=== PATIENT | female | born 1990 | race African-American/Black ===

== ENCOUNTER 2019-06-01 19:13 | Observation (INO) | payer MEDICAID ==
[~2019-06-01] VITALS: Ht 165.1 cm; Wt 79.4 kg
[2019-06-01] MEDS ORDERED: ASCO500C18 PO (19:51)
[2019-06-01] MEDS ORDERED: FERR-71 PO (19:51)
== END 2019-06-01 22:45 | disposition home or self-care (01) ==
LOC: 8 EST LDRP 19:13
PROVIDERS: ADMIT Obstetrics & Gynecology; ATTEND Obstetrics & Gynecology
DX: O42.92 Full-term premature rupture of membranes, unspecified as to length of time between rupture and onset of labor (principal); O62.9 Abnormality of forces of labor, unspecified; Z3A.38 38 weeks gestation of pregnancy
CPT/HCPCS: 99281; G0378

== ENCOUNTER 2019-06-06 18:12 | Inpatient (IN) | payer MEDICAID ==
[~2019-06-06] VITALS: Ht 165.1 cm; Wt 82.1 kg
[~2019-06-06 18:12] MED LIST: ASCO500C18 PO; FERR-71 PO
[2019-06-06] MEDS ORDERED: LACTATED RINGERS 1,000 ML IV SCH ×2 (19:30→21:01)
[2019-06-06] MEDS ORDERED: LACTATED RINGERS 1,000 ML IV ONE (19:30)
[2019-06-06 19:52] LABS: CLARITY URINE TURBID (CLEAR); COLOR URINE DARK YELLOW (YELLOW); KETONES URINE NEGATIVE (NEGATIVE); LEUKOCYTE ESTERASE URINE 1+ (NEGATIVE); NITRITE URINE NEGATIVE (NEGATIVE); OCCULT BLOOD URINE 3+ (NEGATIVE); PROTEIN URINE 1+ (NEGATIVE); SPECIFIC GRAVITY URINE 1.029 (1.005-1.030)
[2019-06-06] MEDS ORDERED: DEXT 5%/LR + PITOCIN 20UNITS/L 1,000 ML IV SCH (21:01)
[2019-06-06] MEDS ORDERED: METHYLERGONOVINE MALEATE 0.2 MG/ML IM PRN (21:15)
[2019-06-06] MEDS ORDERED: ROPIVACAINE HCL/PF EPIDURAL 200 ML EPI SCH (21:15)
[2019-06-06] MEDS ORDERED: NALOXONE HCL 0.4 MG/ML 1ML VIAL IM PRN (21:15)
[2019-06-06] MEDS ORDERED: RHO(D) IMMUNE GLOBULIN 300 MCG/SYR IM SCH (21:15)
[2019-06-06] MEDS ORDERED: MINERAL OIL 30ML BOTTLE PO SCH (21:15)
[2019-06-06] MEDS ORDERED: LIDOCAINE HCL 1% 20ML VIAL (Pyxis) INJ INFIL SCH (21:15)
[2019-06-06] MEDS ORDERED: PENICILLIN G POTASSIUM 5 MMU in DEXT 5% WATER 100 ML IV SCH (22:00)
[2019-06-06 22:05] LABS: *AMPHETAMINES SCREEN URINE NEGATIVE (NEGATIVE); *BARBITURATES SCREEN URINE NEGATIVE (NEGATIVE); *BENZODIAZEPINES SCREEN URINE NEGATIVE (NEGATIVE); *COCAINE SCREEN URINE NEGATIVE (NEGATIVE); CANNABINOID URINE SCREEN NEGATIVE (NEGATIVE); METHADONE URINE SCREEN NEGATIVE (NEGATIVE); OPIATES URINE SCREEN NEGATIVE (NEGATIVE); PHENCYCLIDINE URINE SCREEN NEGATIVE (NEGATIVE)
[2019-06-06 22:13] LABS: BASOPHILS % 0.6 % (0.0-2.0); EOSINOPHILS % 1.2 % (0.0-5.0); HEMATOCRIT. 29.5 % (36.0-48.0); HEMOGLOBIN. 9.6 g/dL (12.0-16.0); LYMPHOCYTES % 20.4 % (20.0-50.0); MEAN CORPUSCULAR HEMOGLOBIN 25.2 pg (28.0-32.0); MEAN CORPUSCULAR VOLUME 77.7 fL (81.0-99.0); MEAN PLATELET VOLUME 9.7 fl (7.4-10.4); MONOCYTES % 9.2 % (2.0-8.0); NEUTROPHILS % 68.6 % (40.0-76.0); PLATELET 93 x1000/uL (130-400); RED BLOOD CELL COUNT 3.79 mill/uL (4.2-5.4); RED CELL DISTRIBUTION WIDTH 24.6 % (11.6-14.6)
[2019-06-06 22:23] LABS: PARTIAL THROMBOPLASTIN TIME 27.3 sec (23.4-31.0); PROTHROMBIN TIME 10.6 sec (9.6-11.0)
[2019-06-06] MEDS: BUTORPHANOL TARTRATE 2 MG/ML VIAL IV PRN (22:29)
[2019-06-06 23:00] LABS: PLATELET ESTIMATE DECREASED
[2019-06-06 23:41] LABS: HEPATITIS B SURFACE ANTIGEN NEGATIVE
[2019-06-07] MEDS: BUTORPHANOL TARTRATE 2 MG/ML VIAL IV PRN (00:23)
[2019-06-07] MEDS ORDERED: PENICILLIN G POTASSIUM 2.5 MMU in DEXTROSE 5% WATER 50 ML IV SCH (02:00)
[2019-06-07] MEDS ORDERED: DEXT 5%/LR + PITOCIN 20UNITS/L 1,000 ML IV SCH (02:01)
[2019-06-07] MEDS ORDERED: IBUPROFEN 400MG TABLET PO PRN (02:15)
[2019-06-07] MEDS ORDERED: DIPHENHYDRAMINE 25MG CAPSULE PO PRN (02:15)
[2019-06-07] MEDS ORDERED: RHO(D) IMMUNE GLOBULIN 300 MCG/SYR IM PRN (02:15)
[2019-06-07] MEDS: LANOLIN OINT 7GM TUBE TOP PRN ×2 (03:49→13:12)
[2019-06-07] MEDS: IBUPROFEN 800MG TABLET PO PRN ×2 (03:49→13:13)
[2019-06-07 04:00] VITALS: BP 108/55
[2019-06-07 07:30] VITALS: BP 102/51
[2019-06-07] MEDS: PRENATAL VIT/FE FUMARATE/FA TABLET PO SCH (13:13)
[2019-06-07 15:30] VITALS: BP 101/48
[2019-06-07 19:30] VITALS: BP 105/47
[2019-06-07] MEDS ORDERED: MEASLES,MUMPS&RUBELLA VACCINE 1 VIAL SUBCUT ONE (19:45)
[2019-06-08 04:00] VITALS: BP 105/57
[2019-06-08] MEDS: IBUPROFEN 800MG TABLET PO PRN ×3 (04:33→21:43)
[2019-06-08 06:51] LABS: BASOPHILS % 0.3 % (0.0-2.0); HEMATOCRIT. 25.2 % (36.0-48.0); HEMOGLOBIN. 8.3 g/dL (12.0-16.0); LYMPHOCYTES % 17.2 % (20.0-50.0); MEAN CORPUSCULAR HEMOGLOBIN 25.8 pg (28.0-32.0); MEAN CORPUSCULAR VOLUME 77.9 fL (81.0-99.0); MEAN PLATELET VOLUME 9.3 fl (7.4-10.4); NEUTROPHILS % 75.5 % (40.0-76.0); PLATELET 96 x1000/uL (130-400); RED BLOOD CELL COUNT 3.23 mill/uL (4.2-5.4)
[2019-06-08 07:28] VITALS: BP 94/50
[2019-06-08] MEDS: PRENATAL VIT/FE FUMARATE/FA TABLET PO SCH (08:38)
[2019-06-08 16:10] VITALS: BP 99/49
[2019-06-08 20:00] VITALS: BP 112/60
[2019-06-09] VITALS: BP 116/65
[2019-06-09 07:53] VITALS: BP 107/50
[2019-06-09] MEDS: PRENATAL VIT/FE FUMARATE/FA TABLET PO SCH (08:56)
[2019-06-09] MEDS: IBUPROFEN 800MG TABLET PO PRN (08:56)
== END 2019-06-09 12:15 | disposition home or self-care (01) | DRG 560 ==
LOC: UNDOADMOB 18:12 → 8 EST LDRP 18:12 → OBSVTOIN 22:13 → L&D 22:13 → 8 EST LDRP 22:16 → 8EST 06-07 03:30
PROVIDERS: ADMIT Obstetrics & Gynecology; ATTEND Obstetrics & Gynecology
PROC: 10E0XZZ Delivery of Products of Conception, External Approach (ICD-10-PCS; principal; 2019-06-07)
PROC: 0HQ9XZZ Repair Perineum Skin, External Approach (ICD-10-PCS; 2019-06-07)
DX: O70.0 First degree perineal laceration during delivery (principal); D64.9 Anemia, unspecified; O99.02 Anemia complicating childbirth; Z3A.39 39 weeks gestation of pregnancy; Z37.0 Single live birth
CPT/HCPCS: 36415; 80305; 81003; 85025; 86592; 86703; 86762; 86850; 86900; 87340; 90707; 99281; G0378; J0595; J2310; J2540; J2590; J2795; J3490; J7060

== ENCOUNTER 2021-05-26 03:39 | Emergency (ER) | payer BC, MEDICAID ==
[~2021-05-26] VITALS: Ht 165.1 cm; Wt 69.0 kg
[~2021-05-26 03:39] MED LIST changes: -ASCO500C18 PO; +NITR100C PO; +PNV1TABL76 PO; +TOPUD PO
[2021-05-26] MEDS ORDERED: SODIUM CHLORIDE 0.9% 1,000 ML IV ONE (04:45)
[2021-05-26 05:47] LABS: BASOPHILS % 0.2 % (0.0-2.0); CHLORIDE 111 mEq/L (98-107); EOSINOPHILS % 1.3 % (0.0-5.0); HEMATOCRIT. 24.8 % (36.0-48.0); HEMOGLOBIN. 7.9 g/dL (12.0-16.0); MEAN CORPUSCULAR HEMOGLOBIN 24.6 pg (28.0-32.0); MEAN CORPUSCULAR VOLUME 77.4 fL (81.0-99.0); MEAN PLATELET VOLUME 9.3 fl (7.4-10.4); NEUTROPHILS % 74.5 % (40.0-76.0); PLATELET 106 x1000/uL (130-400); RED BLOOD CELL COUNT 3.21 mill/uL (4.2-5.4); RED CELL DISTRIBUTION WIDTH 18.2 % (11.6-14.6)
[2021-05-26 06:21] VITALS: BP 98/51
== END 2021-05-26 06:46 | disposition home or self-care (01) ==
LOC: ER 03:39
DX: O99.892 Other specified diseases and conditions complicating childbirth (principal); S39.81XA Other specified injuries of abdomen, initial encounter; O36.8120 Decreased fetal movements, second trimester, not applicable or unspecified; W50.0XXA Accidental hit or strike by another person, initial encounter; O30.002 Twin pregnancy, unspecified number of placenta and unspecified number of amniotic sacs, second trimester; O32.1XX2 Maternal care for breech presentation, fetus 2; Z3A.16 16 weeks gestation of pregnancy; Y93.89 Activity, other specified; Y92.89 Other specified places as the place of occurrence of the external cause; Y99.0 Civilian activity done for income or pay
CPT/HCPCS: 36415; 76815; 80048; 85025; 86850; 86900; 86901; 96360; 99285; J7030

== ENCOUNTER 2021-07-14 11:47 | Emergency (ER) | payer MEDICAID ==
[~2021-07-14] VITALS: Ht 165.1 cm; Wt 76.0 kg
[2021-07-14 12:23] LABS: BASOPHILS % 0.2 % (0.0-2.0); EOSINOPHILS % 1.1 % (0.0-5.0); HEMATOCRIT. 25.9 % (36.0-48.0); HEMOGLOBIN. 8.4 g/dL (12.0-16.0); LYMPHOCYTES % 10.8 % (20.0-50.0); MEAN CORPUSCULAR HEMOGLOBIN 25.2 pg (28.0-32.0); MEAN CORPUSCULAR VOLUME 77.3 fL (81.0-99.0); MEAN PLATELET VOLUME 9.3 fl (7.4-10.4); MONOCYTES % 6.6 % (2.0-8.0); NEUTROPHILS % 81.3 % (40.0-76.0); PLATELET 113 x1000/uL (130-400); RED BLOOD CELL COUNT 3.35 mill/uL (4.2-5.4); RED CELL DISTRIBUTION WIDTH 19.2 % (11.6-14.6)
[2021-07-14 12:30] LABS: CHLORIDE 113 mEq/L (98-107)
[2021-07-14 12:47] LABS: CLARITY URINE CLOUDY (CLEAR); COLOR URINE YELLOW (YELLOW); KETONES URINE NEGATIVE (NEGATIVE); LEUKOCYTE ESTERASE URINE TRACE (NEGATIVE); NITRITE URINE NEGATIVE (NEGATIVE); OCCULT BLOOD URINE NEGATIVE (NEGATIVE); PROTEIN URINE NEGATIVE (NEGATIVE); SPECIFIC GRAVITY URINE 1.014 (1.005-1.030)
[2021-07-14] MEDS ORDERED: SODIUM CHLORIDE 0.9% 1,000 ML IV ONE (14:45)
[2021-07-14] MEDS ORDERED: ACETAMINOPHEN 325MG TABLET PO ONE (16:00)
[2021-07-14 16:13] VITALS: BP 97/44
[2021-07-14] MEDS ORDERED: IOHEXOL-350 100 ML BOTTLE ONE (18:00)
== END 2021-07-14 16:49 | disposition home or self-care (01) ==
LOC: ER 11:47
DX: O26.892 Other specified pregnancy related conditions, second trimester (principal); R07.89 Other chest pain; O99.012 Anemia complicating pregnancy, second trimester; Z3A.23 23 weeks gestation of pregnancy
CPT/HCPCS: 36415; 71275; 80053; 81003; 83880; 84484; 85025; 85379; 93005; 93970; 96360; 99285; J7030; Q9967

== ENCOUNTER 2021-07-14 16:36 | Observation (INO) | payer MEDICAID ==
[~2021-07-14] VITALS: Ht 165.1 cm; Wt 76.2 kg
[2021-07-14] MEDS ORDERED: LACTATED RINGERS 1,000 ML IV SCH (20:15)
[2021-07-14] MEDS ORDERED: CEFAZOLIN 2,000 MG in DEXT 5% WATER 100 ML IV NR (21:30)
== END 2021-07-14 20:50 | disposition home or self-care (01) ==
LOC: 8 EST LDRP 16:36
PROVIDERS: ADMIT Obstetrics & Gynecology; ATTEND Obstetrics & Gynecology
DX: O26.892 Other specified pregnancy related conditions, second trimester (principal); R07.89 Other chest pain; R06.02 Shortness of breath; Z3A.23 23 weeks gestation of pregnancy
CPT/HCPCS: 76805; 76810; 93005; 99281; G0378; J0690; J7060; 59025; 96365

== ENCOUNTER 2021-07-14 21:02 | Emergency (ER) | payer MEDICAID | END 2021-07-14 21:31 | disposition left against medical advice (07) | LOC: ER 21:02 | DX: Z53.21 Procedure and treatment not carried out due to patient leaving prior to being seen by health care provider (principal) ==